=== PATIENT | female | born 1975 | race Two or more races ===

== ENCOUNTER 2018-05-21 13:45 | Emergency (ER) | payer MEDICAID ==
[~2018-05-21] VITALS: Ht 165.1 cm; Wt 92.5 kg
[2018-05-21 14:21] VITALS: BP 116/77
== END 2018-05-21 16:00 | disposition home or self-care (01) ==
LOC: ER 13:45
DX: L03.115 Cellulitis of right lower limb (principal); S80.261A Insect bite (nonvenomous), right knee, initial encounter; W57.XXXA Bitten or stung by nonvenomous insect and other nonvenomous arthropods, initial encounter; Y93.89 Activity, other specified; Y92.89 Other specified places as the place of occurrence of the external cause; Y99.8 Other external cause status